=== PATIENT | female | born 1945 | race Caucasian/White ===

== ENCOUNTER 2024-01-28 13:41 | Outpatient (CLI) | payer MEDICARE, SELFPAY ==
[2024-01-28 12:52] LABS: Abs Immature Grans 0.01 10^3/uL (0.0-0.06); Absolute Basophil Count 0.02 10^3/uL (0.0-0.2); Absolute Eosinophil Count 0.03 10^3/uL (0.0-0.7); Absolute Lymphocyte Count 0.72 10^3/uL (1.2-3.4); Absolute Monocyte Count 0.58 10^3/uL (0.1-0.8); Absolute Neutrophil Count 2.73 10^3/uL (1.2-6.7); Basophils % 0.5 %; Eosinophils % 0.7 %; HCT 41.9 % (36.0-46.0); HGB 14.7 g/dL (11.2-15.7); Immature Grans % 0.2 %; Lymphocytes % 17.6 %; MCH 33.5 pg (27.0-33.0); MCHC 35.1 % (32.0-36.0); MCV 95 fL (80-95); MPV 9.4 fL (8.0-11.0); Monocytes % 14.2 %; Neutrophils % 66.8 %; Platelet Count 134 10^3/uL (130-400); RBC 4.39 10^6/uL (3.93-5.22); RDW-SD 45.6 fL; WBC 4.09 10^3/uL (4.4-10.8)
[2024-01-28 13:11] LABS: ALT 72 U/L (14-59); AST 57 U/L (15-37); Albumin 3.8 g/dL (3.4-5.0); Alkaline Phosphatase 228 U/L (46-116); Anion Gap 8.4 mmol/L (3-11); BUN 11 mg/dL (7-18); Bilirubin, Total 1.4 mg/dL (0.2-1.0); CO2 27.6 mmol/L (21.0-32.0); CREATININE 0.7 mg/dL (0.55-1.02); Calcium 9.8 mg/dL (8.5-10.1); Chloride 102 mmol/L (98-107); Estimated GFR 89.58 (mL/min/1.73m2); Glucose 154 mg/dL (74-106); LDH 139 U/L (81-234); Potassium 3.9 mmol/L (3.5-5.1); Sodium 138 mmol/L (136-145); Total Protein 6.9 g/dL (6.4-8.2)
== END 2024-01-28 13:42 | disposition home or self-care (01) ==
LOC: LBO 13:41
PROVIDERS: PCP Internal Medicine; Visit Provider Nurse Practitioner Adult Health
DX: C83.38 Diffuse large B-cell lymphoma, lymph nodes of multiple sites (principal)
CPT/HCPCS: 36415; 80053; 83615; 85025